=== PATIENT | male | born 1950 | race African-American/Black ===

== ENCOUNTER → 2018-08-29 | Outpatient (CLI) | payer OTHER ==
[~2018-08-29] MED LIST: ALBUTEROL (0.083%) 2.5MG/3ML NEB ONE
== END | disposition home or self-care (01) ==
LOC: PF 12:48
PROVIDERS: ATTEND Internal Medicine Pulmonary Disease
DX: J45.909 Unspecified asthma, uncomplicated (principal); I10 Essential (primary) hypertension; E66.9 Obesity, unspecified; R91.8 Other nonspecific abnormal finding of lung field; M47.816 Spondylosis without myelopathy or radiculopathy, lumbar region
CPT/HCPCS: 94060; 94727; 94729; J7611

== ENCOUNTER 2022-08-23 20:43 | Inpatient (IN) | payer OTHER ==
[~2022-08-23] VITALS: Ht 172.7 cm; Wt 104.8 kg
[~2022-08-23 20:43] MED LIST changes: -ALBUTEROL (0.083%) 2.5MG/3ML NEB ONE; +ALFU10TA9 MT; +ASPI-1497 MT; +ATOR10TA MT; +BENA10TA74 MT
[2022-08-24 01:09] LABS: HEMOGLOBIN. 11.9 g/dL (14.0-18.0); MEAN CORPUSCULAR HEMOGLOBIN 29.3 pg (28.0-32.0); MEAN CORPUSCULAR VOLUME 86.5 fL (80.0-94.0); MEAN PLATELET VOLUME 7.8 fl (7.4-10.4); PLATELET 184 x1000/uL (130-400); RED BLOOD CELL COUNT 4.05 mill/uL (4.7-6.1); RED CELL DISTRIBUTION WIDTH 14.2 % (11.6-14.6)
[2022-08-24] MEDS ORDERED: MORPHINE SULFATE 4 MG/ML CPJ (NOT FOR IM USE) IV ONE (01:15)
[2022-08-24 01:19] LABS: CHLORIDE 102 mEq/L (98-107)
[2022-08-24 01:37] LABS: INR 1.1; PROTHROMBIN TIME 11.6 sec (9.6-11.0)
[2022-08-24 02:38] LABS: PLATELET ESTIMATE NORMAL
[2022-08-24 04:45] LABS: CLARITY URINE TURBID (CLEAR); COLOR URINE DARK YELLOW (YELLOW); KETONES URINE TRACE (NEGATIVE); LEUKOCYTE ESTERASE URINE 3+ (NEGATIVE); NITRITE URINE POSITIVE (NEGATIVE); OCCULT BLOOD URINE 3+ (NEGATIVE); PH URINE 5.5 (4.5-8.0); PROTEIN URINE 2+ (NEGATIVE); SPECIFIC GRAVITY URINE 1.016 (1.005-1.030)
[2022-08-24] MEDS ORDERED: PIPERACILLIN/TAZ 3.375G PREMIX 50 ML IV SCH (09:15)
[2022-08-24] MEDS ORDERED: NALOXONE HCL 0.4MG/ML VIAL IV PRN (09:30)
[2022-08-24] MEDS ORDERED: MORPHINE SULFATE 2 MG/ML CPJ (NOT FOR IM USE) IV PRN (09:30)
[2022-08-24] MEDS ORDERED: PIPERACILLIN/TAZ 3.375G PREMIX 50 ML IV NR (09:30)
[2022-08-24] MEDS: ACETAMINOPHEN 325MG TABLET PO PRN ×2 (10:26→17:24)
[2022-08-24 12:00] VITALS: BP 103/57
[2022-08-24 12:30] VITALS: BP 93/51
[2022-08-24 13:04] LABS: HEMATOCRIT. 33.5 % (42.0-52.0); HEMOGLOBIN. 11.3 g/dL (14.0-18.0); MEAN CORPUSCULAR HEMOGLOBIN 29.1 pg (28.0-32.0); MEAN CORPUSCULAR VOLUME 86.3 fL (80.0-94.0); MEAN PLATELET VOLUME 8.4 fl (7.4-10.4); PLATELET 152 x1000/uL (130-400); RED BLOOD CELL COUNT 3.88 mill/uL (4.7-6.1); RED CELL DISTRIBUTION WIDTH 14.1 % (11.6-14.6)
[2022-08-24 13:07] LABS: CHLORIDE 101 mEq/L (98-107)
[2022-08-24 13:50] LABS: PLATELET ESTIMATE NORMAL
[2022-08-24] MEDS ORDERED: PIPERACILLIN/TAZOBACTAM 3.375G in DEXT 5% WATER 50ML IV SCH (14:00)
[2022-08-24] MEDS ORDERED: ENOXAPARIN 40MG/0.4ML SYR SUBCUT SCH (15:00)
[2022-08-24] MEDS ORDERED: POTASSIUM CHLORIDE 20MEQ/PACKET PO NR (15:45)
[2022-08-24 16:00] VITALS: BP 151/82
[2022-08-24] MEDS ORDERED: ACETAMINOPHEN 325MG TABLET PO PRN (16:45)
[2022-08-24] MEDS: METHYLPREDNISOLONE SOD SUCC 40 MG/ML VIAL IV SCH (17:24)
[2022-08-24] MEDS: DEXAMETHASONE 4MG/ML 1ML VIAL IV SCH (18:32)
[2022-08-24 20:00] VITALS: BP 114/69
[2022-08-24] MEDS: AMLODIPINE 5MG TABLET PO SCH (21:24)
[2022-08-24] MEDS: ATORVASTATIN CALCIUM 20MG TABLET PO SCH (21:24)
[2022-08-24] MEDS: PIPERACILLIN/TAZOBACTAM 3.375G in DEXT 5% WATER 50ML IV SCH (21:35)
[2022-08-25] VITALS: BP 137/70
[2022-08-25] MEDS: METHYLPREDNISOLONE SOD SUCC 40 MG/ML VIAL IV SCH ×3 (00:47→17:58)
[2022-08-25] MEDS: DEXAMETHASONE 4MG/ML 1ML VIAL IV SCH ×4 (00:47→17:58)
[2022-08-25 04:00] VITALS: BP 122/60
[2022-08-25] MEDS: PIPERACILLIN/TAZOBACTAM 3.375G in DEXT 5% WATER 50ML IV SCH ×3 (05:31→21:14)
[2022-08-25 08:00] VITALS: BP 143/71
[2022-08-25] MEDS: AMLODIPINE 5MG TABLET PO SCH ×2 (09:02→21:13)
[2022-08-25 10:34] LABS: HEMOGLOBIN. 11.7 g/dL (14.0-18.0); MEAN CORPUSCULAR HEMOGLOBIN 29.8 pg (28.0-32.0); MEAN CORPUSCULAR VOLUME 86.2 fL (80.0-94.0); MEAN PLATELET VOLUME 8.5 fl (7.4-10.4); PLATELET 141 x1000/uL (130-400); RED BLOOD CELL COUNT 3.94 mill/uL (4.7-6.1)
[2022-08-25 10:52] LABS: CHLORIDE 104 mEq/L (98-107)
[2022-08-25 10:57] LABS: HDL CHOLESTEROL 21 mg/dL (40-59); LDL CHOLESTEROL 38 mg/dL (5-100)
[2022-08-25 12:00] VITALS: BP 109/65
[2022-08-25 15:09] LABS: *AMPHETAMINES SCREEN URINE NEGATIVE (NEGATIVE); *BARBITURATES SCREEN URINE NEGATIVE (NEGATIVE); *BENZODIAZEPINES SCREEN URINE NEGATIVE (NEGATIVE); *COCAINE SCREEN URINE NEGATIVE (NEGATIVE); CANNABINOID URINE SCREEN NEGATIVE (NEGATIVE); METHADONE URINE SCREEN NEGATIVE (NEGATIVE); OPIATES URINE SCREEN PRESUMTIVE POSITIVE (NEGATIVE); PHENCYCLIDINE URINE SCREEN NEGATIVE (NEGATIVE)
[2022-08-25 16:00] VITALS: BP 108/66
[2022-08-25 20:00] VITALS: BP 114/72
[2022-08-25] MEDS: ATORVASTATIN CALCIUM 20MG TABLET PO SCH (21:13)
[2022-08-25 22:25] LABS: PLATELET ESTIMATE NORMAL
[2022-08-26] VITALS (40 sets, daily range): BP systolic 100–143; BP diastolic 32–96
[2022-08-26] MEDS: DEXAMETHASONE 4MG/ML 1ML VIAL IV SCH ×4 (00:34→17:43)
[2022-08-26] MEDS: METHYLPREDNISOLONE SOD SUCC 40 MG/ML VIAL IV SCH ×2 (00:34→17:43)
[2022-08-26] MEDS: PIPERACILLIN/TAZOBACTAM 3.375G in DEXT 5% WATER 50ML IV SCH ×3 (05:54→22:32)
[2022-08-26] MEDS ORDERED: GENTAMICIN SULF 40MG/ML 2ML VIAL ONE (06:51)
[2022-08-26] MEDS ORDERED: LIDOCAINE HCL 2%/EPINEPHRINE 1:100,000 20 ML VIAL INFIL ONE (06:51)
[2022-08-26] MEDS ORDERED: THROMBIN (BOVINE) 5000 UNITS/VIAL TOP ONE (06:51)
[2022-08-26] MEDS ORDERED: GLYCOPYRROLATE 0.2 MG/ML 2ML VIAL ONE ×4 (06:58→10:52)
[2022-08-26] MEDS ORDERED: ONDANSETRON HCL 4MG/2ML INJ ONE (06:58)
[2022-08-26] MEDS ORDERED: ROCURONIUM BROMIDE 10MG/ML VIAL 5ML IV ONE ×2 (06:58→09:06)
[2022-08-26] MEDS ORDERED: DEXAMETHASONE 4MG/ML 1ML VIAL ONE (06:58)
[2022-08-26] MEDS ORDERED: CEFAZOLIN SODIUM 1000MG/VIAL ONE (06:58)
[2022-08-26] MEDS ORDERED: SUCCINYLCHOLINE CHLORIDE 200MG/10ML IV ONE (06:58)
[2022-08-26] MEDS ORDERED: PROPOFOL 200MG/20ML VIAL IV ONE (06:58)
[2022-08-26] MEDS ORDERED: ETOMIDATE 2MG/ML 10ML VIAL IV ONE ×2 (06:58→10:53)
[2022-08-26] MEDS ORDERED: FENTANYL CITRATE/PF 50MCG/ML 2ML VIAL ONE (06:59)
[2022-08-26] MEDS ORDERED: MIDAZOLAM HCL 2 MG/2 ML VIAL ONE (07:00)
[2022-08-26] MEDS ORDERED: ALBUTEROL (0.083%) 2.5MG/3ML NEB ONE (07:52)
[2022-08-26] MEDS: IPRATROPIUM/ALBUTEROL 0.5-3(2.5)MG/3ML NEB HHN PRN (08:05)
[2022-08-26] MEDS ORDERED: BALANCED SALT IRRIG SOLN 15ML ONE (08:33)
[2022-08-26] MEDS ORDERED: HYDROMORPHONE HCL/PF 2MG/ML CPJ ONE (09:00)
[2022-08-26] MEDS ORDERED: NEOSTIGMINE METHYLSULFATE 1MG/ML 10 ML VIAL ONE (10:12)
[2022-08-26] MEDS ORDERED: HYDRALAZINE 20MG/ML VIAL ONE (10:13)
[2022-08-26] MEDS ORDERED: NALOXONE HCL 0.4 MG/ML 1ML VIAL ONE (10:54)
[2022-08-26] MEDS ORDERED: NICARDIPINE 100 MG in SODIUM CHLORIDE 0.9% 60 ML IV PRN (11:00)
[2022-08-26] MEDS: DEXT 5%/LACTATED RINGERS 1,000 ML IV SCH ×2 (11:29→20:34)
[2022-08-26 12:11] LABS: BG BASE EXCESS -7.1 mmol/L (-2.0-2.0); BG CARBOXYHEMOGLOBIN 0.2 % (0.5-1.5); BG DEOXYHEMOGLOBIN 1.7 % (0.0-5.0); BG FRACTION INSPIRED OXYGEN 40; BG HCO3 ACT 19.3 mmol/L (22.0-26.0); BG METHEMOGLOBIN 0.3 % (0.0-1.5); BG OXYGEN SATURATION 98.3 % (92.0-98.5); BG OXYHEMOGLOBIN 97.8 % (94.0-97.0); BG PCO2 41.9 mmHg (35.0-45.0); BG PH 7.281 (7.350-7.450); BG PO2 134.6 mmHg (75.0-100.0); BG SAMPLE SITE ALINE; BG TOTAL HEMOGLOBIN 12.5 g/dL (12.0-18.0); BG VENT MODE T PIECE
[2022-08-26] MEDS: MORPHINE SULFATE 4 MG/ML CPJ (NOT FOR IM USE) IV PRN ×4 (14:21→22:33)
[2022-08-26] MEDS: AMLODIPINE 5MG TABLET PO SCH (20:33)
[2022-08-26] MEDS: ATORVASTATIN CALCIUM 20MG TABLET PO SCH (20:34)
[2022-08-27] VITALS (27 sets, daily range): BP systolic 80–156; BP diastolic 50–120
[2022-08-27] MEDS: DEXAMETHASONE 4MG/ML 1ML VIAL IV SCH ×4 (00:38→17:41)
[2022-08-27] MEDS: METHYLPREDNISOLONE SOD SUCC 40 MG/ML VIAL IV SCH ×2 (00:38→08:36)
[2022-08-27] MEDS: MORPHINE SULFATE 4 MG/ML CPJ (NOT FOR IM USE) IV PRN ×5 (00:39→22:13)
[2022-08-27] MEDS: PIPERACILLIN/TAZOBACTAM 3.375G in DEXT 5% WATER 50ML IV SCH ×3 (05:11→21:38)
[2022-08-27 05:58] LABS: HEMATOCRIT. 31.2 % (42.0-52.0); HEMOGLOBIN. 10.6 g/dL (14.0-18.0); MEAN CORPUSCULAR HEMOGLOBIN 29.5 pg (28.0-32.0); MEAN CORPUSCULAR VOLUME 86.5 fL (80.0-94.0); MEAN PLATELET VOLUME 8.8 fl (7.4-10.4); PLATELET 144 x1000/uL (130-400); RED CELL DISTRIBUTION WIDTH 14.7 % (11.6-14.6)
[2022-08-27] MEDS: DEXT 5%/LACTATED RINGERS 1,000 ML IV SCH (06:48)
[2022-08-27 08:20] LABS: PLATELET ESTIMATE NORMAL
[2022-08-27] MEDS: AMLODIPINE 5MG TABLET PO SCH ×2 (08:37→21:38)
[2022-08-27] MEDS: ATORVASTATIN CALCIUM 20MG TABLET PO SCH (21:38)
[2022-08-28] VITALS (7 sets, daily range): BP systolic 111–160; BP diastolic 67–79
[2022-08-28] MEDS: PIPERACILLIN/TAZOBACTAM 3.375G in DEXT 5% WATER 50ML IV SCH ×2 (06:27→13:31)
[2022-08-28] MEDS: AMLODIPINE 5MG TABLET PO SCH ×2 (09:00→21:00)
[2022-08-28] MEDS: MORPHINE SULFATE 4 MG/ML CPJ (NOT FOR IM USE) IV PRN ×2 (09:25→21:38)
[2022-08-28 17:06] LABS: BASOPHILS % 0.1 % (0.0-2.0); CHLORIDE 107 mEq/L (98-107); EOSINOPHILS % 0.1 % (0.0-5.0); HEMATOCRIT. 32.6 % (42.0-52.0); LYMPHOCYTES % 10.9 % (20.0-50.0); MEAN CORPUSCULAR HEMOGLOBIN 29.3 pg (28.0-32.0); MEAN CORPUSCULAR VOLUME 86.5 fL (80.0-94.0); MEAN PLATELET VOLUME 8.9 fl (7.4-10.4); MONOCYTES % 12.4 % (2.0-8.0); NEUTROPHILS % 76.5 % (40.0-76.0); PLATELET 140 x1000/uL (130-400); RED BLOOD CELL COUNT 3.76 mill/uL (4.7-6.1); RED CELL DISTRIBUTION WIDTH 14.7 % (11.6-14.6)
[2022-08-28] MEDS: IPRATROPIUM/ALBUTEROL 0.5-3(2.5)MG/3ML NEB HHN PRN (17:54)
[2022-08-28 18:40] LABS: BG BASE EXCESS 2.7 mmol/L (-2.0-2.0); BG CARBOXYHEMOGLOBIN 0.3 % (0.5-1.5); BG DEOXYHEMOGLOBIN 2.6 % (0.0-5.0); BG FRACTION INSPIRED OXYGEN 28; BG HCO3 ACT 27.6 mmol/L (22.0-26.0); BG METHEMOGLOBIN 0.3 % (0.0-1.5); BG OXYGEN SATURATION 97.4 % (92.0-98.5); BG OXYHEMOGLOBIN 96.8 % (94.0-97.0); BG PCO2 43.7 mmHg (35.0-45.0); BG PH 7.418 (7.350-7.450); BG PO2 96.1 mmHg (75.0-100.0); BG SAMPLE SITE RIGHT RADIAL; BG TOTAL HEMOGLOBIN 12.6 g/dL (12.0-18.0); BG VENT MODE NASAL CANNULA
[2022-08-28] MEDS: ATORVASTATIN CALCIUM 20MG TABLET PO SCH (21:39)
[2022-08-28] MEDS: PIPERACILLIN/TAZOBACTAM 3.375 G in DEXTROSE 5% WATER 50 ML IV SCH (22:42)
[2022-08-28] MEDS ORDERED: ALLOPURINOL 100 MG TABLET PO SCH (23:15)
[2022-08-28] MEDS ORDERED: FOLIC ACID/VITAMIN B COMP W-C TABLET PO SCH (23:20)
[2022-08-28] MEDS ORDERED: GABAPENTIN 100MG CAPSULE PO SCH (23:20)
[2022-08-29] VITALS: BP 139/66
[2022-08-29 04:00] VITALS: BP 143/59
[2022-08-29] MEDS: PIPERACILLIN/TAZOBACTAM 3.375 G in DEXTROSE 5% WATER 50 ML IV SCH ×3 (05:50→22:30)
[2022-08-29] MEDS: ASPIRIN 81MG TABLET PO SCH ×3 (05:51→08:37)
[2022-08-29] MEDS: DOCUSATE SODIUM 100MG CAPSULE PO SCH ×2 (05:51→10:00)
[2022-08-29] MEDS: MORPHINE SULFATE 4 MG/ML CPJ (NOT FOR IM USE) IV PRN (05:59)
[2022-08-29] MEDS ORDERED: PANTOPRAZOLE 40MG DR TABLET PO SCH (07:20)
[2022-08-29] MEDS ORDERED: SEVELAMER CARBONATE 800 MG TABLET PO SCH (07:50)
[2022-08-29 08:00] VITALS: BP 157/78
[2022-08-29 09:03] LABS: HEMATOCRIT. 31.7 % (42.0-52.0); HEMOGLOBIN. 10.8 g/dL (14.0-18.0); MEAN CORPUSCULAR HEMOGLOBIN 29.5 pg (28.0-32.0); MEAN PLATELET VOLUME 8.5 fl (7.4-10.4); PLATELET 164 x1000/uL (130-400); RED BLOOD CELL COUNT 3.64 mill/uL (4.7-6.1); RED CELL DISTRIBUTION WIDTH 14.7 % (11.6-14.6)
[2022-08-29 09:13] LABS: CHLORIDE 108 mEq/L (98-107)
[2022-08-29] MEDS: AMLODIPINE 5MG TABLET PO SCH ×2 (09:51→20:50)
[2022-08-29] MEDS: BENAZEPRIL 10MG TABLET PO SCH (09:51)
[2022-08-29 12:00] VITALS: BP 152/76
[2022-08-29 12:42] LABS: NUCLEATED RED BLOOD CELLS 1 /100 WBC; PLATELET ESTIMATE NORMAL
[2022-08-29 16:00] VITALS: BP 166/74
[2022-08-29] MEDS ORDERED: NALOXONE HCL 0.4MG/ML VIAL IV PRN (16:15)
[2022-08-29] MEDS: TAMSULOSIN HCL 0.4MG SR CAPSULE PO SCH (18:05)
[2022-08-29 20:00] VITALS: BP 146/71
[2022-08-29] MEDS: HYDROCODONE/ACETAMINOPHEN 5/325MG TABLET PO PRN (20:50)
[2022-08-29] MEDS ORDERED: ATORVASTATIN CALCIUM 40MG TABLET PO SCH (21:00)
[2022-08-30] VITALS: BP 147/69
[2022-08-30 04:00] VITALS: BP 132/51
[2022-08-30] MEDS: PIPERACILLIN/TAZOBACTAM 3.375 G in DEXTROSE 5% WATER 50 ML IV SCH ×3 (06:15→22:03)
[2022-08-30 08:00] VITALS: BP 162/76
[2022-08-30] MEDS: ASPIRIN 81MG TABLET PO SCH (08:25)
[2022-08-30] MEDS: AMLODIPINE 5MG TABLET PO SCH ×2 (08:28→20:45)
[2022-08-30] MEDS: DOCUSATE SODIUM 100MG CAPSULE PO SCH (08:30)
[2022-08-30] MEDS: TAMSULOSIN HCL 0.4MG SR CAPSULE PO SCH (08:30)
[2022-08-30] MEDS: BENAZEPRIL 10MG TABLET PO SCH (08:41)
[2022-08-30 12:00] VITALS: BP 146/68
[2022-08-30] MEDS ORDERED: LACTULOSE 20G/30ML UDC PO NR (12:00)
[2022-08-30 16:00] VITALS: BP 148/73
[2022-08-30 20:00] VITALS: BP 141/63
[2022-08-30] MEDS: HYDROCODONE/ACETAMINOPHEN 5/325MG TABLET PO PRN (20:46)
[2022-08-30] MEDS ORDERED: LACTULOSE 20G/30ML UDC PO PRN (21:00)
[2022-08-31] VITALS: BP 110/58
[2022-08-31 04:00] VITALS: BP 120/56
[2022-08-31] MEDS: PIPERACILLIN/TAZOBACTAM 3.375 G in DEXTROSE 5% WATER 50 ML IV SCH ×3 (06:09→20:46)
[2022-08-31 08:00] VITALS: BP 135/77
[2022-08-31] MEDS: DOCUSATE SODIUM 100MG CAPSULE PO SCH (08:47)
[2022-08-31] MEDS: ASPIRIN 81MG TABLET PO SCH (08:47)
[2022-08-31] MEDS: TAMSULOSIN HCL 0.4MG SR CAPSULE PO SCH (08:48)
[2022-08-31] MEDS: HYDROCODONE/ACETAMINOPHEN 5/325MG TABLET PO PRN ×2 (08:50→23:59)
[2022-08-31] MEDS: BENAZEPRIL 10MG TABLET PO SCH (08:50)
[2022-08-31] MEDS: AMLODIPINE 5MG TABLET PO SCH ×2 (08:51→20:46)
[2022-08-31 12:00] VITALS: BP 118/50
[2022-08-31 16:00] VITALS: BP 131/72
[2022-08-31 20:00] VITALS: BP 126/70
[2022-09-01] VITALS: BP 152/76
[2022-09-01 04:00] VITALS: BP 122/71
[2022-09-01 08:00] VITALS: BP 125/68
[2022-09-01] MEDS: IPRATROPIUM/ALBUTEROL 0.5-3(2.5)MG/3ML NEB HHN PRN (09:28)
[2022-09-01] MEDS: ASPIRIN 81MG TABLET PO SCH (10:06)
[2022-09-01] MEDS: TAMSULOSIN HCL 0.4MG SR CAPSULE PO SCH (10:07)
[2022-09-01] MEDS: DOCUSATE SODIUM 100MG CAPSULE PO SCH (10:07)
[2022-09-01] MEDS: AMLODIPINE 5MG TABLET PO SCH (10:07)
[2022-09-01] MEDS: BENAZEPRIL 10MG TABLET PO SCH (10:07)
[2022-09-01 12:00] VITALS: BP 150/76
[2022-09-01 15:58] VITALS: BP 150/76
[2022-09-01 16:00] VITALS: BP 133/66
== END 2022-09-01 17:15 | DRG 471 ==
LOC: ER 20:43 → 8WST 08-24 05:33 → EDBEDREQ 08-24 06:03 → EDBEDREQTM 08-24 06:03 → MICUNO 08-26 09:43 → 6EST 08-28 01:15
PROVIDERS: ADMIT Internal Medicine; ATTEND Internal Medicine
PROC: 0RG2071 Fusion of 2 or more Cervical Vertebral Joints with Autologous Tissue Substitute, Posterior Approach, Posterior Column, Open Approach (ICD-10-PCS; principal; 2022-08-26)
DX: M48.02 Spinal stenosis, cervical region (principal); G82.50 Quadriplegia, unspecified; E87.1 Hypo-osmolality and hyponatremia; N39.0 Urinary tract infection, site not specified; G95.20 Unspecified cord compression; J45.901 Unspecified asthma with (acute) exacerbation; N17.9 Acute kidney failure, unspecified; I11.0 Hypertensive heart disease with heart failure; E66.9 Obesity, unspecified; M54.12 Radiculopathy, cervical region; E87.6 Hypokalemia; N28.9 Disorder of kidney and ureter, unspecified; Z20.822 Contact with and (suspected) exposure to COVID-19; I50.9 Heart failure, unspecified; N40.1 Benign prostatic hyperplasia with lower urinary tract symptoms; E78.5 Hyperlipidemia, unspecified; I25.10 Atherosclerotic heart disease of native coronary artery without angina pectoris; Z68.35 Body mass index [BMI] 35.0-35.9, adult; Z90.79 Acquired absence of other genital organ(s); Z88.8 Allergy status to other drugs, medicaments and biological substances; Z79.899 Other long term (current) drug therapy
CPT/HCPCS: 36415; 36600; 71045; 72040; 72141; 72146; 72148; 74176; 76000; 80048; 80053; 80061; 80305; 81003; 82375; 82805; 84153; 84484; 85025; 86850; 86900; 87426; 88304; 88311; 93005; 93306; 94640; 97110; 97116; 97162; 97166; 97530; 97535; 99291; C1713; J0330; J0360; J0690; J1100; J1170; J1580; J1650; J2250; J2270; J2310; J2405; J2543; J2704; J2710; J2920; J3010; J3490; J7050; J7060; J7121; L0172; G0103

== ENCOUNTER 2023-03-31 15:15 | Emergency (ER) | payer OTHER ==
[~2023-03-31] VITALS: Ht 172.7 cm; Wt 91.0 kg
[2023-03-31 18:15] VITALS: BP 104/57
[2023-03-31] MEDS ORDERED: HYDROCODONE/ACETAMINOPHEN 5/325MG TABLET PO ONE (18:15)
[2023-03-31] MEDS ORDERED: HYDROCODONE/ACETAMINOPHEN 5/325MG TABLET PO NR (20:15)
[2023-03-31] MEDS ORDERED: CIPR250S3 MT (21:52)
[2023-03-31] MEDS ORDERED: TAMS-11 MT (21:52)
[2023-03-31 22:21] LABS: CLARITY URINE TURBID (CLEAR); COLOR URINE DARK YELLOW (YELLOW); KETONES URINE TRACE (NEGATIVE); LEUKOCYTE ESTERASE URINE 3+ (NEGATIVE); NITRITE URINE NEGATIVE (NEGATIVE); OCCULT BLOOD URINE 3+ (NEGATIVE); PH URINE 5.5 (4.5-8.0); PROTEIN URINE 2+ (NEGATIVE); SPECIFIC GRAVITY URINE 1.014 (1.005-1.030)
== END 2023-03-31 22:31 | disposition home or self-care (01) ==
LOC: ER 16:28
DX: R33.9 Retention of urine, unspecified (principal); I11.0 Hypertensive heart disease with heart failure; I50.9 Heart failure, unspecified; J45.909 Unspecified asthma, uncomplicated; Z91.018 Allergy to other foods
CPT/HCPCS: 51702; 81003; 99284

== ENCOUNTER 2023-07-07 23:08 | Emergency (ER) | payer OTHER ==
[~2023-07-07] VITALS: Ht 172.7 cm; Wt 97.0 kg
[~2023-07-07 23:08] MED LIST changes: +CIPR250S3 MT; +TAMS-11 MT
[2023-07-07 23:11] VITALS: BP 184/108; PULSE 95; RESP 18; TEMP 98.1; O2SAT 98
[2023-07-08] MEDS ORDERED: CEPH500C2 MT (00:17)
[2023-07-08 00:48] LABS: CLARITY URINE CLOUDY (CLEAR); COLOR URINE YELLOW (YELLOW); GLUCOSE URINE NEGATIVE (NEGATIVE); KETONES URINE NEGATIVE (NEGATIVE); LEUKOCYTE ESTERASE URINE 3+ (NEGATIVE); NITRITE URINE POSITIVE (NEGATIVE); OCCULT BLOOD URINE 1+ (NEGATIVE); PROTEIN URINE 2+ (NEGATIVE); SPECIFIC GRAVITY URINE 1.016 (1.005-1.030); UROBILINOGEN URINE 0.2 E.U./dL (0.2-1.0)
[2023-07-08 01:12] LABS: BACTERIA URINE 2+; SQUAMOUS EPITHELIAL CELL URINE 1+ /lpf (RARE/1+); WBC URINE TNTC /hpf (0-2)
== END 2023-07-08 01:06 | disposition home or self-care (01) ==
LOC: ER 23:08
DX: T83.028A Displacement of other urinary catheter, initial encounter (principal); J45.909 Unspecified asthma, uncomplicated; I10 Essential (primary) hypertension; I50.9 Heart failure, unspecified; Z98.890 Other specified postprocedural states
CPT/HCPCS: 51702; 81003; 87077; 87186; 93005; 99284; A4315

== ENCOUNTER 2023-11-28 20:15 | Emergency (ER) | payer OTHER ==
[~2023-11-28] VITALS: Ht 172.7 cm; Wt 102.2 kg
[~2023-11-28 20:15] MED LIST changes: +CEPH500C2 MT
[2023-11-28 20:52] VITALS: O2SAT 98
[2023-11-29 00:38] LABS: CLARITY URINE CLOUDY (CLEAR); COLOR URINE YELLOW (YELLOW); GLUCOSE URINE NEGATIVE (NEGATIVE); KETONES URINE NEGATIVE (NEGATIVE); LEUKOCYTE ESTERASE URINE 3+ (NEGATIVE); NITRITE URINE NEGATIVE (NEGATIVE); OCCULT BLOOD URINE 1+ (NEGATIVE); PROTEIN URINE 2+ (NEGATIVE); SPECIFIC GRAVITY URINE 1.008 (1.005-1.030); UROBILINOGEN URINE 0.2 E.U./dL (0.2-1.0)
[2023-11-29] MEDS ORDERED: CEPH500T MT (00:53)
[2023-11-29 01:04] LABS: WBC URINE TNTC /hpf (0-2)
[2023-11-29 01:05] LABS: RBC URINE 0-2 /hpf (0-2)
[2023-11-29 01:08] LABS: BACTERIA URINE TRACE; SQUAMOUS EPITHELIAL CELL URINE NONE SEEN /lpf (RARE/1+)
[2023-11-29 01:27] VITALS: BP 189/88; PULSE 90; RESP 28; TEMP 98.3
== END 2023-11-29 01:32 | disposition home or self-care (01) ==
LOC: ER 20:15
DX: T83.098A Other mechanical complication of other urinary catheter, initial encounter (principal); N39.0 Urinary tract infection, site not specified; I10 Essential (primary) hypertension; Z79.899 Other long term (current) drug therapy; X58.XXXA Exposure to other specified factors, initial encounter
CPT/HCPCS: 81003; 99283

== ENCOUNTER 2024-01-29 06:37 | Emergency (ER) | payer OTHER ==
[~2024-01-29] VITALS: Ht 172.7 cm; Wt 98.0 kg
[~2024-01-29 06:37] MED LIST changes: +CEPH500T MT
[2024-01-29 06:56] VITALS: O2SAT 98
[2024-01-29] MEDS: OXYCODONE HCL/ACETAMINOPHEN 5/325MG TABLET PO ONE (08:06)
[2024-01-29 09:52] LABS: CLARITY URINE TURBID (CLEAR); COLOR URINE YELLOW (YELLOW); GLUCOSE URINE 1+ (NEGATIVE); KETONES URINE NEGATIVE (NEGATIVE); LEUKOCYTE ESTERASE URINE 3+ (NEGATIVE); NITRITE URINE POSITIVE (NEGATIVE); OCCULT BLOOD URINE NEGATIVE (NEGATIVE); PH URINE >=9.0 (4.5-8.0); PROTEIN URINE 3+ (NEGATIVE); SPECIFIC GRAVITY URINE 1.019 (1.005-1.030)
[2024-01-29] MEDS ORDERED: LEVO-65 PO (09:59)
[2024-01-29 10:04] LABS: BACTERIA URINE 2+; SQUAMOUS EPITHELIAL CELL URINE 1+ /lpf (RARE/1+); TRIPLE PHOSPHATE CRYSTAL URINE 2+ /lpf; YEAST URINE NONE SEEN
[2024-01-29 10:10] VITALS: BP 149/84; PULSE 90; RESP 16; TEMP 98.9
== END 2024-01-29 10:26 | disposition home or self-care (01) ==
LOC: ER 06:37
DX: R33.9 Retention of urine, unspecified (principal); I10 Essential (primary) hypertension; J45.909 Unspecified asthma, uncomplicated; Z91.018 Allergy to other foods; Z98.890 Other specified postprocedural states
CPT/HCPCS: 51702; 81003; 87077; 87186; 99284

== ENCOUNTER 2024-03-09 12:23 | Emergency (ER) | payer OTHER ==
[~2024-03-09] VITALS: Ht 172.7 cm; Wt 98.0 kg
[~2024-03-09 12:23] MED LIST changes: +LEVO-65 PO
[2024-03-09 12:33] VITALS: BP 151/72; PULSE 76; RESP 16; TEMP 98.5; O2SAT 100
[2024-03-09 18:23] LABS: CLARITY URINE TURBID (CLEAR); COLOR URINE RED (YELLOW); GLUCOSE URINE NEGATIVE (NEGATIVE); KETONES URINE NEGATIVE (NEGATIVE); LEUKOCYTE ESTERASE URINE 3+ (NEGATIVE); NITRITE URINE POSITIVE (NEGATIVE); OCCULT BLOOD URINE 3+ (NEGATIVE); PROTEIN URINE 3+ (NEGATIVE)
[2024-03-09] MEDS ORDERED: CEPH500C2 MT (18:34)
[2024-03-09 18:40] LABS: RBC URINE TNTC /hpf (0-2); SQUAMOUS EPITHELIAL CELL URINE FEW /lpf (RARE/1+); WBC URINE 25-50 /hpf (0-2)
[2024-03-09 18:41] LABS: BACTERIA URINE 2+
[2024-03-09] MEDS ORDERED: CEPHALEXIN 250MG CAPSULE PO ONE (18:45)
== END 2024-03-09 18:38 | disposition home or self-care (01) ==
LOC: ER 12:23
DX: R30.0 Dysuria (principal); N39.0 Urinary tract infection, site not specified; J45.909 Unspecified asthma, uncomplicated; I10 Essential (primary) hypertension; Z46.6 Encounter for fitting and adjustment of urinary device; Z79.899 Other long term (current) drug therapy
CPT/HCPCS: 81003; 87077; 87186; 99283

== ENCOUNTER 2024-04-13 07:55 | Emergency (ER) | payer OTHER ==
[~2024-04-13] VITALS: Ht 172.7 cm; Wt 99.8 kg
[2024-04-13 08:01] VITALS: O2SAT 98
[2024-04-13 09:37] LABS: CLARITY URINE CLEAR (CLEAR); COLOR URINE YELLOW (YELLOW); GLUCOSE URINE NEGATIVE (NEGATIVE); KETONES URINE NEGATIVE (NEGATIVE); LEUKOCYTE ESTERASE URINE 3+ (NEGATIVE); NITRITE URINE NEGATIVE (NEGATIVE); OCCULT BLOOD URINE 3+ (NEGATIVE); PROTEIN URINE 2+ (NEGATIVE); SPECIFIC GRAVITY URINE 1.016 (1.005-1.030)
[2024-04-13 09:55] LABS: SQUAMOUS EPITHELIAL CELL URINE FEW /lpf (RARE/1+)
[2024-04-13 09:56] LABS: RBC URINE 25-50 /hpf (0-2)
[2024-04-13 09:57] LABS: BACTERIA URINE 1+; YEAST URINE NONE SEEN
[2024-04-13] MEDS ORDERED: CEFP100T8 MT (10:02)
[2024-04-13 10:30] VITALS: BP 172/98; PULSE 67; RESP 18; TEMP 98.2
== END 2024-04-13 10:49 | disposition home or self-care (01) ==
LOC: ER 07:55
DX: N39.0 Urinary tract infection, site not specified (principal); J45.909 Unspecified asthma, uncomplicated; Z79.899 Other long term (current) drug therapy; Z98.890 Other specified postprocedural states; Z46.6 Encounter for fitting and adjustment of urinary device
CPT/HCPCS: 51702; 81003; 99284

== ENCOUNTER 2024-06-13 00:25 | Emergency (ER) | payer OTHER ==
[~2024-06-13] VITALS: Ht 172.7 cm; Wt 98.0 kg
[~2024-06-13 00:25] MED LIST changes: +CEFP100T8 MT
[2024-06-13 01:10] VITALS: BP 161/86; PULSE 100; RESP 20; TEMP 98.3; O2SAT 100
[2024-06-13 04:48] LABS: CLARITY URINE TURBID (CLEAR); COLOR URINE ORANGE (YELLOW); GLUCOSE URINE NEGATIVE (NEGATIVE); KETONES URINE 1+ (NEGATIVE); LEUKOCYTE ESTERASE URINE 2+ (NEGATIVE); NITRITE URINE POSITIVE (NEGATIVE); OCCULT BLOOD URINE 3+ (NEGATIVE); PH URINE 5.5 (4.5-8.0); PROTEIN URINE 2+ (NEGATIVE); SPECIFIC GRAVITY URINE 1.015 (1.005-1.030); UROBILINOGEN URINE 0.2 E.U./dL (0.2-1.0)
[2024-06-13 07:20] LABS: RBC URINE TNTC /hpf (0-2)
[2024-06-13 07:22] LABS: WBC URINE 50-100 /hpf (0-2)
[2024-06-13 07:23] LABS: BACTERIA URINE 4+; SQUAMOUS EPITHELIAL CELL URINE FEW /lpf (RARE/1+)
== END 2024-06-13 04:24 | disposition home or self-care (01) ==
LOC: ER 00:25
DX: R33.9 Retention of urine, unspecified (principal); I10 Essential (primary) hypertension; N28.9 Disorder of kidney and ureter, unspecified; Z91.018 Allergy to other foods; Z79.899 Other long term (current) drug therapy
CPT/HCPCS: 51702; 81003; 87077; 87186; 99284

== ENCOUNTER 2024-06-15 10:57 | Emergency (ER) | payer OTHER ==
[~2024-06-15] VITALS: Ht 172.7 cm; Wt 95.3 kg
[2024-06-15 11:24] VITALS: O2SAT 96
[2024-06-15 12:12] LABS: CLARITY URINE TURBID (CLEAR); COLOR URINE ORANGE (YELLOW); GLUCOSE URINE NEGATIVE (NEGATIVE); KETONES URINE NEGATIVE (NEGATIVE); LEUKOCYTE ESTERASE URINE 3+ (NEGATIVE); NITRITE URINE NEGATIVE (NEGATIVE); OCCULT BLOOD URINE 3+ (NEGATIVE); PROTEIN URINE 3+ (NEGATIVE); SPECIFIC GRAVITY URINE 1.017 (1.005-1.030)
[2024-06-15 12:26] LABS: BACTERIA URINE 4+; RBC URINE 50-100 /hpf (0-2); SQUAMOUS EPITHELIAL CELL URINE FEW /lpf (RARE/1+); WBC URINE TNTC /hpf (0-2); YEAST URINE NONE SEEN
[2024-06-15] MEDS ORDERED: CEFP100T8 MT (13:00)
[2024-06-15 13:55] VITALS: BP 111/68; PULSE 88; RESP 16; TEMP 98.7
== END 2024-06-15 14:05 | disposition home or self-care (01) ==
LOC: ER 11:07
DX: N39.0 Urinary tract infection, site not specified (principal); I10 Essential (primary) hypertension; Z79.899 Other long term (current) drug therapy
CPT/HCPCS: 81003; 87077; 87186; 99283

== ENCOUNTER 2024-07-30 03:21 | Emergency (ER) | payer OTHER ==
[~2024-07-30] VITALS: Ht 172.7 cm; Wt 99.8 kg
[~2024-07-30 03:21] MED LIST changes: +ALFU10TA46 MT; -ALFU10TA9 MT
[2024-07-30 03:41] VITALS: O2SAT 93
[2024-07-30 03:42] VITALS: BP 198/98; PULSE 111; RESP 16; TEMP 98.2; O2SAT 99
[2024-07-30 06:06] LABS: BASOPHILS % 1.2 % (0.0-2.0); EOSINOPHILS % 1.6 % (0.0-5.0); HEMATOCRIT. 36.9 % (42.0-52.0); HEMOGLOBIN. 12.2 g/dL (14.0-18.0); LYMPHOCYTES % 8.9 % (20.0-50.0); MEAN CORPUSCULAR HEMOGLOBIN 29.7 pg (28.0-32.0); MEAN CORPUSCULAR HGB CONC 33.1 g/dL (31.0-37.0); MEAN CORPUSCULAR VOLUME 89.6 fL (80.0-94.0); MEAN PLATELET VOLUME 8.6 fl (7.4-10.4); MONOCYTES % 6.9 % (2.0-8.0); NEUTROPHILS % 81.4 % (40.0-76.0); PLATELET 155 x1000/uL (130-400); RED BLOOD CELL COUNT 4.12 mill/uL (4.7-6.1); RED CELL DISTRIBUTION WIDTH 12.8 % (11.6-14.6); WHITE BLOOD COUNT 6.5 x1000/uL (4.5-11.0)
[2024-07-30 06:10] LABS: CALCIUM 8.9 mg/dL (8.7-10.4)
[2024-07-30 06:15] LABS: CREATININE 1.5 mg/dL (0.6-1.3)
[2024-07-30 06:43] LABS: POTASSIUM 3.5 mEq/L (3.5-5.1)
[2024-07-30 08:07] LABS: CLARITY URINE CLOUDY (CLEAR); COLOR URINE YELLOW (YELLOW); GLUCOSE URINE NEGATIVE (NEGATIVE); KETONES URINE NEGATIVE (NEGATIVE); LEUKOCYTE ESTERASE URINE 2+ (NEGATIVE); NITRITE URINE POSITIVE (NEGATIVE); OCCULT BLOOD URINE 3+ (NEGATIVE); PH URINE 5.5 (4.5-8.0); PROTEIN URINE 2+ (NEGATIVE); SPECIFIC GRAVITY URINE 1.016 (1.005-1.030)
[2024-07-30 08:25] LABS: BACTERIA URINE 4+; RBC URINE TNTC /hpf (0-2); SQUAMOUS EPITHELIAL CELL URINE NONE SEEN /lpf (RARE/1+); YEAST URINE NONE SEEN
[2024-07-30] MEDS ORDERED: CEFP200T13 MT (11:44)
== END 2024-07-30 13:12 | disposition home or self-care (01) ==
LOC: ER 03:28
DX: T83.098A Other mechanical complication of other urinary catheter, initial encounter (principal); I10 Essential (primary) hypertension; Z98.890 Other specified postprocedural states; Z91.018 Allergy to other foods; Z79.899 Other long term (current) drug therapy; X58.XXXA Exposure to other specified factors, initial encounter; Y93.89 Activity, other specified; Y92.9 Unspecified place or not applicable; Y99.9 Unspecified external cause status
CPT/HCPCS: 36415; 51702; 80048; 81003; 83605; 85025; 87077; 87186; 99284

== ENCOUNTER 2024-09-29 06:51 | Emergency (ER) | payer OTHER ==
[~2024-09-29] VITALS: Ht 172.7 cm; Wt 100.0 kg
[~2024-09-29 06:51] MED LIST changes: +CEFP200T13 MT
[2024-09-29 07:07] VITALS: O2SAT 98
[2024-09-29] MEDS ORDERED: CLONIDINE 0.2MG TABLET PO ONE (07:30)
[2024-09-29] MEDS: CLONIDINE 0.1MG TABLET PO NR (08:21)
[2024-09-29 08:27] VITALS: BP 177/87; PULSE 62; RESP 18; TEMP 36.66960; O2SAT 98
== END 2024-09-29 08:22 | disposition home or self-care (01) ==
LOC: ER 06:51
DX: Z46.6 Encounter for fitting and adjustment of urinary device (principal); I10 Essential (primary) hypertension; N40.0 Benign prostatic hyperplasia without lower urinary tract symptoms; Z79.899 Other long term (current) drug therapy; Z79.82 Long term (current) use of aspirin; Z90.79 Acquired absence of other genital organ(s)
CPT/HCPCS: 51702; 99283; 99284

== ENCOUNTER 2024-10-09 21:44 | Emergency (ER) | payer OTHER ==
[~2024-10-09] VITALS: Ht 172.7 cm; Wt 100.0 kg
[2024-10-09 22:06] VITALS: O2SAT 99
[2024-10-10 00:45] VITALS: BP 145/66; PULSE 99; RESP 14; TEMP 36.61404; O2SAT 99
== END 2024-10-10 00:47 | disposition home or self-care (01) ==
LOC: ER 21:44
DX: R33.9 Retention of urine, unspecified (principal); I10 Essential (primary) hypertension; Z79.899 Other long term (current) drug therapy; Z90.79 Acquired absence of other genital organ(s); Z91.018 Allergy to other foods
CPT/HCPCS: 51702; 99284

== ENCOUNTER 2024-11-10 20:04 | Emergency (ER) | payer OTHER ==
[~2024-11-10] VITALS: Ht 172.7 cm; Wt 97.5 kg
[2024-11-10 20:06] VITALS: BP 141/78; TEMP 98.5; O2SAT 100
[2024-11-10 20:19] VITALS: PULSE 107; RESP 16; O2SAT 100
[2024-11-10 21:42] LABS: CLARITY URINE TURBID (CLEAR); COLOR URINE YELLOW (YELLOW); GLUCOSE URINE NEGATIVE (NEGATIVE); KETONES URINE NEGATIVE (NEGATIVE); LEUKOCYTE ESTERASE URINE 3+ (NEGATIVE); NITRITE URINE NEGATIVE (NEGATIVE); OCCULT BLOOD URINE 2+ (NEGATIVE); PROTEIN URINE 2+ (NEGATIVE); SPECIFIC GRAVITY URINE 1.014 (1.005-1.030); UROBILINOGEN URINE 0.2 E.U./dL (0.2-1.0)
[2024-11-10 21:58] LABS: BACTERIA URINE 3+; RBC URINE 15-25 /hpf (0-2); SQUAMOUS EPITHELIAL CELL URINE 1+ /lpf (RARE/1+); WBC URINE TNTC /hpf (0-2)
[2024-11-11] MEDS ORDERED: SULF1TAB48 MT (01:16)
== END 2024-11-11 01:52 | disposition home or self-care (01) ==
LOC: ER 20:04
DX: N39.0 Urinary tract infection, site not specified (principal); I10 Essential (primary) hypertension; Z79.899 Other long term (current) drug therapy; Z90.79 Acquired absence of other genital organ(s)
CPT/HCPCS: 81003; 87077; 87186; 99283

== ENCOUNTER 2025-02-07 10:04 | Emergency (ER) | payer BC ==
[~2025-02-07] VITALS: Ht 172.7 cm; Wt 105.0 kg
[~2025-02-07 10:04] MED LIST changes: +SULF1TAB48 MT
[2025-02-07 10:09] VITALS: O2SAT 98
[2025-02-07 10:26] VITALS: BP 185/94; PULSE 89; RESP 20; TEMP 36.8; O2SAT 98
== END 2025-02-07 11:15 | disposition home or self-care (01) ==
LOC: ER 10:04
DX: T83.018A Breakdown (mechanical) of other urinary catheter, initial encounter (principal); I10 Essential (primary) hypertension; Z90.79 Acquired absence of other genital organ(s); Z87.440 Personal history of urinary (tract) infections; Z79.899 Other long term (current) drug therapy; Z79.82 Long term (current) use of aspirin; Z98.890 Other specified postprocedural states; Y92.89 Other specified places as the place of occurrence of the external cause
CPT/HCPCS: 51702; 99284